=== PATIENT | male | born 1975 | race Caucasian/White ===

== ENCOUNTER → 2018-03-12 14:27 | Outpatient (CLI) | payer OTHER, SELFPAY ==
[2018-03-12 14:42] LABS: Add Manual Diff / Slide Review NO; Basophils Percent Auto 0.7 % (0-2); Eosinophils Percent Auto 1.6 % (2-4); Hematocrit 46.2 % (41-53); Hemoglobin 16.2 g/dL (13.5-17.5); Mean Corpuscular Volume 88.5 fL (80-100); Monocytes Percent Auto 8.3 % (3-14); Neutrophils Absolute Auto 5800 /uL (3000-5900); Neutrophils Percent Auto 67.4 % (50-75); Platelet Count 205 X10^3/uL (150-400); Red Blood Cell Count 5.22 X10^6/uL (4.5-5.9); Red Cell Distribution Width 13.8 % (11.6-14.8); White Blood Cell Count 8.6 X10^3/uL (4.5-11.0)
[2018-03-12 14:54] LABS: Alanine Aminotransferase 40 IU/L (21-72); Albumin 4.6 g/dL (3.5-5.0); Albumin Globulin Ratio 1.4 (1.0-2.8); Alkaline Phosphatase 64 U/L (38-126); Aspartate Aminotransferase 25 IU/L (17-59); BUN Creatinine Ratio 13.8 (6-22); Bilirubin Total 0.8 mg/dL (0.2-1.3); Blood Urea Nitrogen 11 mg/dL (9-20); Calcium 9.3 mg/dL (8.4-10.2); Carbon Dioxide 28 mmol/L (22-32); Chloride 101 mmol/L (98-107); Estimated Glomerular Filt Rate > 60.0 mL/min (>60); Globulin 3.3 g/dL (1.7-4.1); Glucose 101 mg/dL (70-100); HEMOLYSIS < 15 (0-50); Lactate Dehydrogenase 384 U/L (313-618); Sodium 142 mmol/L (137-145); Total Protein 7.9 g/dL (6.3-8.2)
== END ==
PROVIDERS: Visit Provider Nurse Practitioner Gerontology
DX: C82.90 Follicular lymphoma, unspecified, unspecified site (principal)
CPT/HCPCS: 36415; 80053; 83615; 85025

== ENCOUNTER → 2018-07-09 14:46 | Outpatient (CLI) | payer OTHER, SELFPAY ==
--- NOTE | 2018-07-09 14:47 | DI.CT.S_ITS ---
PROCEDURE: CT CHEST ABD PEL W CON INDICATIONS: History of follicular lymphoma. TECHNIQUE: After the administration of oral and intravenous contrast, 5 mm thick sections acquired from the lung apices to the symphysis. 5 mm coronal and sagittal reformats were performed, with additional 7 mm coronal MIP reformats through the lungs. For radiation dose reduction, the following was used: automated exposure control, adjustment of mA and/or kV according to patient size. COMPARISON: [facility], CT, CHEST ABDOMEN PELVIS WITH CONTRAST, 09/04/2011, 9:28. [facility], CT, NECK/CHEST/ABD/PEL W CONTRAST, 06/09/2015, 10:07. [facility], CT, CHEST/ABD/PEL WITH CONTRAST, 07/21/2012, 9:04. FINDINGS: Image quality: Excellent. CHEST: Lungs and pleura: No new suspicious nodules or masses the lesions. There are a few small nodules including a 2 mm nodule in the right upper lobe on series 3 image 19 and small foci of nodular thickening along the right major fissure on images 34 and 35 which appear unchanged compared to the prior studies. There is mild dependent atelectasis. There are calcified nodules consistent with old granulomas disease. No pleural effusions or pneumothorax. Central and peripheral airways appear patent and normal in caliber. Mediastinum: Heart size is normal. No pericardial effusion. No mediastinal or hilar adenopathy by size criteria. Thoracic aorta and central pulmonary arteries are normal in size. Esophagus is normal in caliber. No hiatal hernia. Chest wall: No axillary or supraclavicular adenopathy by size criteria. Thyroid gland demonstrates no discrete nodules. ABDOMEN: Solid organs: No focal hepatic mass lesions identified. Gallbladder is nondistended without calcified gallstones. Biliary system is non dilated. Pancreas enhances normally. Spleen is normal in size with scattered splenic calcifications consistent with old granulomas disease. No adrenal nodules. Kidneys demonstrate normal size and enhancement, without hydronephrosis. Peritoneum and bowel: Bowel loops demonstrate normal wall thickness and caliber. No free fluid or air. Nodes and vessels: No retroperitoneal or mesenteric adenopathy by size criteria. Aorta and inferior vena cava are normal in size. Miscellaneous: No ventral hernias. PELVIS: Genitourinary: Bladder wall thickness is normal. Miscellaneous: No inguinal hernias or adenopathy. Bones: No suspicious bony lesions. There are pars defects redemonstrated at L5-S1. No vertebral body compression fractures. IMPRESSION: 1. No lymphadenopathy or other evidence of recurrent disease in the chest, abdomen, or pelvis. Dictated by: Maurisio Coy M.D. on 07/09/2018 at 16:31 Approved by: Maurisio Coy M.D. on 07/09/2018 at 16:37
== END ==
PROVIDERS: Visit Provider Internal Medicine Hematology & Oncology
DX: C82.90 Follicular lymphoma, unspecified, unspecified site (principal)
CPT/HCPCS: 71260; 74177; Q9967

== ENCOUNTER 2018-07-10 09:00 | Oncology outpatient (ONC) | payer OTHER, SELFPAY ==
[2018-06-30 11:02] VITALS: BP 129/83; PULSE 78; RESP 17; TEMP 36.9; O2SAT 98
--- NOTE | 2018-06-30 12:21 | ONC.PN ---
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 Patient completed the treatment on April 09, 2012. There after patient has been on active surveillance. Last time patient was seen in February of 2017. Since then patient has not seen any physicians yet. Patient presents here today for scheduled follow-up. Patient reported that he has noticed a little more night sweats than before. 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 Patient denies any weight fever or chills. Patient said that he has good appetite and the weight has been stable. Recently patient also noted it has noticed some ?cysts? in the upper inner thighs bilaterally. No enlarged lymph nodes in the groin or the axilla us. Patient reported that the right-sided scar at in the groin still there and has not changed. The right lower extremity edema remains about the same. ONCOLOGICAL HISTORY Stage IV follicular lymphoma, originally diagnosed in 2008 after presenting with bulky adenopathy in the inguinal area on the right, biopsy confirmed. He was treated with Rituxan/CHOP completed 6 cycles on 11/07/2009 followed by maintenance Rituxan for 18 months, completed 04/09/2012. The last CT scan for surveillance was 09/04/2011. Chronic right leg edema following previous right inguinal lymph node biopsy. Last seen by Rashi Byrd on 02/13/2017. - Patient Self-Reported Symptoms SR Constitution: Fatigue/Malaise, Night Sweats SR eye issues: Double vision SR ears, nose, mouth, throat issues: Changes in taste SR respiratory issues: Shortness of breath SR Cardiovascular issues: Dizzy/lightheaded SR Skin issues: Blistering or peeling SR Musculoskeletal issues: Back or neck pain SR Neuro issues: Lightheaded/dizzy - Additional ROS All systems PM: reviewed and no additional remarkable complaints except as stated Home Medications and Allergies Home Medications Medication Instructions Recorded Confirmed Type multivitamin [Multiple Vitamins] 1 tab PO QDAY #0 02/13/17 06/30/18 History Allergies Allergy/AdvReac Type Severity Reaction Status Date / Time Penicillins [PENICILLINS] Allergy Unknown Verified 06/30/18 11:08 Exam Vital signs: Last Vital Signs Temp 98.4 F 06/30/18 11:02 Pulse 78 06/30/18 11:02 Resp 17 06/30/18 11:02 BP 129/83 06/30/18 11:02 Pulse Ox 98 06/30/18 11:02 ECOG 1 - Constitutional positive no acute distress, positive obese, positive cooperative - Routine HEENT Exam Head: Present: normocephalic, atraumatic Eye: Present: EOMI, PERRL, normal accommodation. Absent: conjunctival icterus - Routine Neck Exam Present: supple, trachea midline. Absent: lymphadenopathy, thyromegaly - Routine Respiratory Exam Present: Clear to auscultation bilaterally. Absent: wheezes - Routine Cardiovascular Exam Present: RRR, S1, S2. Absent: murmur, gallop, rubs - Routine Abdominal Exam Present: soft, normoactive bowel sounds. Absent: tenderness, distended Palpation/Percussion: Absent: hepatomegaly, splenomegaly - Routine Extremities Exam Present: edema Comments: Mild right lower extremity edema. Left side is completely normal. - Routine Neurological Exam Present: alert, oriented X3, CN II-XII intact. Absent: sensory deficit, motor deficit - Routine Psychiatric Exam Present: normal affect, normal thought process, cooperative, good insight, good judgment - Additional findings Additional findings: Id not appreciate any enlarged lymph nodes in the neck, axilla, or groins on the left side. On the right side there are 2 palpable hard nodes of 1 cm in size, which probably are the scars patient was talking about. Patient said the have not changed at all. Results - Labs All labs in the computer were reviewed. Assessment and Plan (1) Follicular lymphoma Current visit: Yes Status: Chronic I reviewed the lab results with the patient. Patient's CBC from March 12 is completely within the normal range. On my physical examination, I do not appreciate any enlarged lymph nodes. The minor symptom of mild night sweats probably is not indicative of disease recurrence or metastasis. However the patient has not had a repeat staging since after about 2010. Given all the above and the fact that his follicular lymphoma was stage IV and treated with 8 cycles of R-CHOP followed by maintenance therapy with rituximab, I will proceed with a restaging studies with CT scan of the chest abdomen and pelvis. And I will have him come back after the scan results are available for review, hopefully about 1 week.
[2018-07-10 09:28] VITALS: BP 142/88; PULSE 92; RESP 16; TEMP 36.7; O2SAT 97
--- NOTE | 2018-07-10 09:52 | ONC.PN ---
PN -Subjective Interval history: CHIEF COMPLAINT: Stage IV follicular lymphoma here for scheduled for follow-up INTERIM EVENTS After his previous visit, patient underwent CT scan of the chest abdomen and pelvis on July 09, 2018. The CT scan showed no enlarged lymphadenopathy and no evidence of disease recurrence or metastasis. Patient came here today for review of the CT scan results. Patient said that maybe he has just been too much worried about his underlying history of follicular lymphoma. He reports no new signs or symptoms. ONCOLOGICAL HISTORY Stage IV follicular lymphoma, originally diagnosed in 2008 after presenting with bulky adenopathy in the inguinal area on the right, biopsy confirmed. He was treated with Rituxan-CHOP and completed 6 cycles on 11/07/2009 followed by maintenance Rituxan for 18 months, completed 04/09/2012. He endorses chronic right leg edema following previous right inguinal lymph node biopsy - Patient Self-Reported Symptoms SR Constitution: Fatigue/Malaise, Night Sweats - Additional ROS All systems PM: reviewed and no additional remarkable complaints except as stated Home Medications and Allergies Home Medications Medication Instructions Recorded Confirmed Type multivitamin [Multiple Vitamins] 1 tab PO QDAY #0 02/13/17 06/30/18 History Allergies Allergy/AdvReac Type Severity Reaction Status Date / Time Penicillins [PENICILLINS] Allergy Unknown Verified 06/30/18 11:08 Exam Vital signs: Last Vital Signs Temp 98.0 F 07/10/18 09:28 Pulse 92 H 07/10/18 09:28 Resp 16 07/10/18 09:28 BP 142/88 H 07/10/18 09:28 Pulse Ox 97 07/10/18 09:28 ECOG 1 Narrative: General: Patient came in by himself. NAD, WDWN, pleasant and very cooperative. HEENT: Normocephalic atraumatic, extraocular muscle movement intact. Pupils are round equal and reactive to light and accommodations. Anicteric sclera. Neck: Supple, no palpable thyromegaly and no palpable lymph nodes. Respiratory: Clear to auscultation soft, no wheezes. Cardiovascular regular rate and rhythm, S1-S2 normal, no murmurs gallops or rubs. Abdomen: Soft nontender, bowel sounds normal, no palpable organomegaly. Lower extremities: No palpable pedal edema. Neurological exam: Patient is awake and alert and oriented x3, nonfocal on my examination. Psychiatry: normal thought process, good affect, appropriate mood, good judgment. Results - Labs CT scan results as documented in history of present illness Assessment and Plan (1) Follicular lymphoma I reviewed the CT scan results with the patient. I pointed out that based on the CT scan, there is no evidence of disease recurrence or metastasis. And I talked with him that I would like to continue the current active surveillance. I will see the patient every 6 months. I will bring him back and we will check CBC, CMP, LDH and beta 2 microglobulin.. (2) Leg edema, right chronic in nature, occurred after right inguinal lymph node biopsy, stable, will need monitor.
== END 2018-07-10 13:42 | disposition home or self-care (01) ==
PROVIDERS: Visit Provider Internal Medicine Hematology & Oncology
DX: C82.90 Follicular lymphoma, unspecified, unspecified site (principal)
CPT/HCPCS: 99213; 99214

== ENCOUNTER → 2019-03-19 12:40 | Outpatient (CLI) | payer OTHER, SELFPAY ==
[2019-03-19 13:07] LABS: Add Manual Diff / Slide Review NO; Basophils Absolute Auto 0 /uL (0-100); Basophils Percent Auto 0.5 % (0-2); Eosinophils Absolute Auto 300 /uL (0-450); Hematocrit 44.2 % (41-53); Hemoglobin 15.3 g/dL (13.5-17.5); Lymphocytes Absolute Auto 2400 /uL (1100-4500); Mean Corpuscular HGB Conc 34.6 % (30-36); Mean Corpuscular Hemoglobin 30.6 PG (26-34); Mean Corpuscular Volume 88.2 fL (80-100); Monocytes Absolute Auto 700 /uL (0-900); Monocytes Percent Auto 7.2 % (3-14); Neutrophils Absolute Auto 6600 /uL (1500-7000); Neutrophils Percent Auto 65.3 % (50-75); Platelet Count 235 X10^3/uL (150-400); Red Cell Distribution Width 13.2 % (11.6-14.8); White Blood Cell Count 10.1 X10^3/uL (4.5-11.0)
[2019-03-19 13:23] LABS: Alanine Aminotransferase 38 IU/L (21-72); Albumin 4.5 g/dL (3.5-5.0); Albumin Globulin Ratio 1.5 (1.0-2.8); Alkaline Phosphatase 62 U/L (38-126); Aspartate Aminotransferase 26 IU/L (17-59); BUN Creatinine Ratio 13.8 (6-22); Bilirubin Total 0.4 mg/dL (0.2-1.3); Blood Urea Nitrogen 11 mg/dL (9-20); Calcium 9.5 mg/dL (8.4-10.2); Carbon Dioxide 29 mmol/L (22-32); Chloride 102 mmol/L (98-107); Estimated Glomerular Filt Rate > 60.0 mL/min (>60); Glucose 51 mg/dL (70-100); HEMOLYSIS 19 (0-50); Lactate Dehydrogenase 447 U/L (313-618); Potassium 4.5 mmol/L (3.4-5.1); Sodium 140 mmol/L (137-145); Total Protein 7.5 g/dL (6.3-8.2)
[2019-03-21 12:11] LABS: Beta-2-Microglobulin 1.81 mg/L (< 2.52)
== END ==
PROVIDERS: Visit Provider Internal Medicine Hematology & Oncology
DX: C82.90 Follicular lymphoma, unspecified, unspecified site (principal); R60.0 Localized edema
CPT/HCPCS: 36415; 80053; 82232; 83615; 85025

== ENCOUNTER → 2019-10-01 12:12 | Outpatient (CLI) | payer OTHER, SELFPAY ==
[2019-10-01 12:27] LABS: Add Manual Diff / Slide Review NO; Basophils Absolute Auto 100 /uL (0-100); Basophils Percent Auto 0.4 % (0-2); Eosinophils Absolute Auto 200 /uL (0-450); Eosinophils Percent Auto 1.3 % (2-4); Hemoglobin 16.2 g/dL (13.5-17.5); Lymphocytes Absolute Auto 1500 /uL (1100-4500); Mean Corpuscular HGB Conc 33.7 % (30-36); Monocytes Absolute Auto 900 /uL (0-900); Monocytes Percent Auto 6.4 % (3-14); Neutrophils Absolute Auto 11200 /uL (1500-7000); Neutrophils Percent Auto 80.9 % (50-75); Platelet Count 205 X10^3/uL (150-400); Red Blood Cell Count 5.39 X10^6/uL (4.5-5.9); Red Cell Distribution Width 14.2 % (11.6-14.8); White Blood Cell Count 13.8 X10^3/uL (4.5-11.0)
[2019-10-01 12:59] LABS: Alanine Aminotransferase 41 IU/L (<50); Albumin 4.7 g/dL (3.5-5.0); Albumin Globulin Ratio 1.6 (1.0-2.8); Alkaline Phosphatase 64 U/L (38-126); Aspartate Aminotransferase 31 IU/L (17-59); BUN Creatinine Ratio 12.2 (6-22); Bilirubin Total 0.8 mg/dL (0.2-1.3); Blood Urea Nitrogen 11 mg/dL (9-20); Calcium 9.7 mg/dL (8.4-10.2); Carbon Dioxide 28 mmol/L (22-32); Chloride 102 mmol/L (98-107); Estimated Glomerular Filt Rate > 60.0 mL/min (>60); Globulin 2.9 g/dL (1.7-4.1); Glucose 132 mg/dL (70-100); HEMOLYSIS < 15 (0-50); Lactate Dehydrogenase 439 U/L (313-618); Potassium 5.2 mmol/L (3.4-5.1); Sodium 140 mmol/L (137-145); Total Protein 7.6 g/dL (6.3-8.2)
[2019-10-05 13:25] LABS: Beta-2-Microglobulin 1.91 mg/L (< 2.52)
== END ==
PROVIDERS: Visit Provider Internal Medicine Hematology & Oncology
DX: C82.90 Follicular lymphoma, unspecified, unspecified site (principal)
CPT/HCPCS: 36415; 80053; 82232; 83615; 85025

== ENCOUNTER → 2019-10-29 13:38 | Outpatient (CLI) | payer OTHER, SELFPAY ==
--- NOTE | 2019-10-29 13:41 | DI.US.S_ITS ---
PROCEDURE: US EXTREMITY NONVASC LOWER RT INDICATIONS: SUBCUTANOUS PALP LUMP INNER ASPECT OF RT THIGH TECHNIQUE: Real-time scanning was performed of the right thigh, with image documentation. COMPARISON: None. FINDINGS: Targeted sonographic imaging of the patient's area of concern on the medial aspect of the right thigh was performed. There is a spiculated hypoechoic lesion identified that demonstrates diffusely increased vascularity. No drainable or loculated fluid collection is identified. This area measures approximately 2.9 x 1.1 x 3.1 cm. IMPRESSION: Hypervascular hypoechoic lesion within the medial right thigh may represent a subacute hematoma. However, soft tissue sarcoma cannot be completely excluded and a contrast-enhanced MRI is recommended for further evaluation. Dictated by: Tiburcio Garcia M.D. on 10/29/2019 at 15:29 Approved by: Tiburcio Garcia M.D. on 10/29/2019 at 15:31
== END ==
PROVIDERS: Visit Provider Internal Medicine Hematology & Oncology
DX: C82.90 Follicular lymphoma, unspecified, unspecified site (principal); R22.41 Localized swelling, mass and lump, right lower limb
CPT/HCPCS: 76882

== ENCOUNTER → 2019-11-18 13:57 | Outpatient (CLI) | payer OTHER, SELFPAY ==
--- NOTE | 2019-11-18 13:59 | DI.MRI.S_ITS ---
PROCEDURE: MR FEMUR RT WO/W CON INDICATIONS: mass upper thigh of right leg TECHNIQUE: Noncontrast coronal T1 spin echo and STIR, sagittal T1 spin echo with fat saturation and STIR, axial T1 spin echo and T2 fast spin echo with fat saturation. After the administration of contrast, axial/sagittal/coronal T1 spin echo with fat saturation through the lower pelvis and thigh regions optimized for medial right upper thigh visualization. MR surface marker was placed over the palpable area of current clinical concern. COMPARISON: [facility], , EXTREMITY NONVASC LOWER RT, 10/29/2019, 14:54. FINDINGS: Image quality: Excellent. Bones: The visualized bone marrow demonstrates normal signal on all sequences. The overlying cortex appears intact. No abnormal intraosseous enhancement. Soft tissues: No previously evaluated soft tissue mass seen at the medial aspect of the upper right thigh was delineated by MR surface marker applied to the overlying skin surface, and the study was performed both without and after intravenous contrast infusion. The scanned muscles demonstrate normal overall bulk and internal signal. Subcutaneous tissues, however, appear abnormal at the site of current clinical concern. The mass lesion is mildly spiculated, extends to the skin surface, and also extends almost to the medial superficial muscular fascial layer. It has contrast-enhanced borders up to 3.6 cm in AP dimension, 1.5 cm transverse and 3.3 cm craniocaudad. This structure has no identifiable blood products within, appears solid, and homogeneously enhancing. No abnormal soft tissue enhancement is seen elsewhere, no adjacent adenopathy is found.. IMPRESSION: The enhancing mass lesion present shows no evidence of internal contrast enhancement or heterogeneity to its enhancement pattern. Its spiculation and enhancement appearance raises a high degree of concerned that this represents a malignant process, potentially sarcoma. No distant or regional metastatic disease is seen. No adenopathy is found. Surgical consultation is recommended. Dictated by: Valentin Bloom M.D. on 11/18/2019 at 16:24 Approved by: Valentin Bloom M.D. on 11/18/2019 at 16:31
== END ==
PROVIDERS: Referring Provider Internal Medicine Hematology & Oncology; Visit Provider Internal Medicine Hematology & Oncology
DX: R22.41 Localized swelling, mass and lump, right lower limb (principal); Z85.72 Personal history of non-Hodgkin lymphomas
CPT/HCPCS: 73720

== ENCOUNTER 2020-01-11 07:57 | Outpatient (CLI) | payer OTHER, SELFPAY ==
--- NOTE | 2020-01-11 07:59 | DI.US.S_ITS ---
PROCEDURE: US BIOPSY SOFT TISS PEL HIP RT Ultrasound-guided soft tissue mass biopsy with local anesthesia only. INDICATIONS: 2 separate soft tissue lesions involving the medial and anteromedial upper right thigh. TECHNIQUE: The indications, alternatives, benefits, risks, and complications of the procedure were explained to the patient. Written informed consent was obtained and placed in the chart. Continuous EKG and hemodynamic monitoring was started by trained personnel. Real-time sonography was utilized to choose the site for percutaneous soft tissue biopsy. The skin was prepped and draped in the usual sterile fashion. 1% lidocaine was infiltrated down to the site of interest. A coaxial needle was then advanced into the site of interest under direct sonographic visualization. A biopsy apparatus was then utilized, and core biopsies were obtained. The needle was then withdrawn; a bandage was applied to the biopsy site. COMPARISON: [facility], MR, MR FEMUR RT WO/W CON, 11/18/2019, 15:23. [facility], [place], [place] PET CT FUSION SKULL 2 THIGH, 12/09/2019, 15:23. FINDINGS: Biopsy site(s): 2 separate abnormalities were identified both by recent MR and PET CT scanning. The safest access for biopsy was chosen to be directed at the upper more anterior of the 2 lesions, which is located deeper beneath the dermis, within the subcutaneous fat. Needle: Betty biopsy needle set, a 20 gauge, with 19 gauge trocar. Number of passes: 5 total Medications: 1% lidocaine for local anaesthesia. Complications: None. IMPRESSION: Successful ultrasound-guided soft tissue biopsy as discussed above, with pathology results pending. Dictated by: Valentin Bloom M.D. on 01/14/2020 at 12:54 Approved by: Valentin Bloom M.D. on 01/14/2020 at 13:37
[2020-01-11 09:24] VITALS: BP 137/92; PULSE 80; RESP 18; TEMP 36.3; O2SAT 99; BMI 31.0
--- NOTE | 2020-01-11 09:49 | PATH_ITS ---
[facility] Accession Number: [id number] . 01 Material submitted: . thigh - RIGHT THIGH MASS . 01 Diagnosis: Right Thigh Mass, Ultrasound Guided Core Biopsy: Atypical B-lymphoid infiltrates, see microscopic description. [facility] 01/15/2020 1629 Local . 01 Comment: As part of ongoing quality control scientist, this case is also reviewed by Dr. Morenita Mondragon, who agrees with the findings. . . 01 Electronically signed: . Emilia Flowers MD, Pathologist NPI- [id number] . 01 Gross description: . Right Thigh Mass: Received in formalin labeled with the patient name is 24 cc of colorless, cloudy material. Cell block was submitted /[facility] 01/14/2020 1034 Local . 01 Microscopic: . Examination of the biopsy reveals dense infiltrates of predominantly small-sized lymphocytes with scant cytoplasm and irregular nucleus (centrocyte-type), with a maintained follicular architecture. The follicles appear somewhat crowded with diminished mantle zones and without debris-laden histiocytes noted. The lymphocytes infiltrate the subcutaneous fatty tissue. No sheets of large lymphocytes identified. . To further evaluate this dense lymphocytic population, immunostains were performed with the following results: . CD3: T lymphocytes positive. CD5: T lymphocytes positive. B lymphocytes negative for aberrant co-expression. CD20: B lymphocytes positive. PAX-5: B lymphocytes positive. CD10 and BCL-6: Lymphoid follicles positive. In addition, few B lymphocytes away from the follicles show variable positivity. BCL-2: No definite positivity within the follicles. Cyclin-D1: B lymphocytes negative. Ki-67: Low, 5%-10%. Otterbein and lambda light chain immunostains: Slight kappa excess on the the lymphocytes and no restriction on the plasma cells. . Aberrant BCL-6 positivity in a subset of this dense lymphocytic population raised the possibility of recurrent lymphoma (patient has a known history of follicular lymphoma); however, the absence of BCL2 staining within the follicles, precludes a definitive diagnosis for follicular lymphoma. As this is a small biopsy, the findings may not be traveling sales representative of the whole lesion; therefore, excisional biopsy of the lesion is recommended for a definitive diagnosis. . In addition, IgH receptor gene rearrangement studies (to support monoclonality versus a reactive process) and FISH studies for t(14;18) translocation, to support follicular lymphoma, will be performed for further evaluation, and these results will follow in an addendum report. . * This test was developed and its performance characteristics determined by [employer]. It has not been cleared or approved by the U.S. Food and Drug Administration. The FDA has determined that such clearance or approval is not necessary. This test is used for clinical purposes. It should not be regarded as investigational or for research. . 01 Pathologist provided ICD-10: R22.41, C82.90 . 01 CPT . 414516, J42093, C57511 Specimen Comment: A duplicate report has been generated due to demographic updates. Performed at: 01 [facility] [address] [place] [address] [address] [facility], [place], [place] [id number] MD Maurisio Rivers MD Phone: [phone]
[2020-01-11 10:05] VITALS: BP 130/74; PULSE 78; RESP 16; O2SAT 96
[2020-01-11 10:23] VITALS: BP 127/83; PULSE 79; RESP 16; O2SAT 95
--- NOTE | 2020-01-11 11:58 | SUR.PHASEII ---
1040 patient returned from radiology and was recovered and discharged by Tati from . IV discharged by Tati.
--- NOTE | 2020-01-11 12:02 | SUR.PHASEII ---
Valuables returned to patient
== END 2020-01-11 10:45 | disposition home or self-care (01) ==
LOC: OR 07:58
PROVIDERS: PCP Family Medicine; Referring Provider Family Medicine; Visit Provider Internal Medicine Hematology & Oncology
DX: R22.41 Localized swelling, mass and lump, right lower limb (principal); Z85.72 Personal history of non-Hodgkin lymphomas
CPT/HCPCS: 27040; 76942

== ENCOUNTER → 2020-02-22 09:08 | Outpatient (CLI) | payer OTHER, SELFPAY ==
[2020-02-22 13:33] LABS: COVID19 -Nasal RAPID Negative (Negative)
== END ==
PROVIDERS: PCP Family Medicine; Visit Provider Registered Nurse
DX: Z11.59 Encounter for screening for other viral diseases (principal)
CPT/HCPCS: 87635

== ENCOUNTER → 2020-03-12 13:41 | Outpatient (CLI) | payer OTHER, SELFPAY ==
[2020-03-14 02:16] LABS: COVID19 Sendout Not Detected (Not Detect)
== END ==
PROVIDERS: PCP Family Medicine; Visit Provider Physician Assistant
DX: Z11.59 Encounter for screening for other viral diseases (principal)
CPT/HCPCS: 87635

== ENCOUNTER 2020-03-15 15:23 | Day surgery (SDC) | payer OTHER, SELFPAY ==
[2020-03-15] VITALS (7 sets, daily range): BP systolic 109–133; BP diastolic 72–89; PULSE 82–105; RESP 16–20; TEMP 36.1–37.1; O2SAT 92–99; BMI 31.0
--- NOTE | 2020-03-15 | PATH_ITS ---
[facility] Accession Number: [id number] . 01 Material submitted: . groin - RIGHT GROIN PROBABLE LYMPH NODE . 01 Clinical history: . A: RIGHT GROIN PROBABLE LYMPH NODE, HISTORY OF B CELL LYMPHOMA, ABNORMAL FMA HX B CELL LYMPHOMA TREATED 2008, POSSIBLE RECURRENCE . 01 Diagnosis: Right Groin, Excision: Follicular lymphoma, extranodal (subcutaneous inguinal region), predominantly low-grade (grade 1-2/3), follicular pattern. Negative for transformation to diffuse large B-cell lymphoma. [facility] 03/21/2020 1727 Local . 01 Comment: Concurrent flow cytometry (see report [id number]) detected a CD10 positive, kappa restricted B-cell population consistent with B-cell lymphoma, follicle center origin. . This specimen represents recurrence of the patient's follicular lymphoma (treated in 2008) now with extranodal involvement (no definite lymph node architecture is identified on the entire specimen submitted for microscopic examination). . 01 Electronically signed: . Emilia Flowers MD, Pathologist NPI- [id number] . 01 Gross description: . Received in formalin, labeled right groin probable lymph node, HX B-cell lymphoma, abnormal FNA, are two unoriented pieces of matute-white smooth shiny unremarkable skin with underlying tissue which apparently go together (4.0 x 2.3 x 1.8 cm). The resection margin is inked blue and the sliced surface from sampling (probably for flow) is inked green. One piece is serially sectioned and entirely submitted in cassettes A1-A6, and the second piece is serially sectioned and entirely submitted in cassettes A7-A14. Note: Per the requisition, this is a split sample. ([id number]) /MRV 03/21/2020 1727 Local . 01 Microscopic: . . Microscopic examination of the right groin lesion reveals crowded neoplastic follicles, [id number], without mantle zones, extending into subcutaneous fatty tissue, sparing the overlying epidermis. The neoplastic follicles are composed predominantly of small to intermediate sized lymphocytes with irregular cleaved nucleus (centrocytes), inconspicuous nucleolus and scant cytoplasm. Mostly of the neoplastic follicles are composed of less than 15 centroblasts per high-power field (with only rare neoplastic follicles exceeding 15 centroblasts/HPF), therefore, overall the grade is predominantly low-grade (1-2/3) and the pattern predominantly follicular (more than 75%). . To better evaluate those lymphocytes, a panel of immunostains is performed with the following results: . CD3 (Block A2): T-lymphocytes positive. CD5 (Block A2): T-lymphocytes positive. (No aberrant coexpression on the B-lymphocytes). CD10 (Block A2): Neoplastic lymphoid follicles positive. CD20 (Blocks A2 and A5): Neoplastic lymphoid follicles positive. PAX5 (Block A2): Neoplastic lymphoid follicles positive. CD23 (Blocks A2 and A5): Follicular dendritic cells positive. BCL2 (Blocks A2 and A5): Neoplastic B-lymphocytes negative, see note. BCL6 (Blocks A2 and A5): Neoplastic lymphoid follicles positive. Cyclin D1 (Block A2): Neoplastic B-lymphocytes negative. Ki-67 (Blocks A2 and A5): Variably positive, ranging from 5 to 15%. . Note: Negative BCL2 is rarely seen in follicular lymphomas. Possibilities include extranodal involvement, post treatment (Rituxan) effect, clone of antibody, etc. On a recent specimen (surgical case #[id number], 01/14/20, small biopsy of the same lesion) BCL2 was also negative. FISH performed on that specimen was positive for BCL2-IGH fusion, t(14;18), supporting the diagnosis. . There is no evidence of transformation to Diffuse Large B-cell Lymphoma. . Selected slides were also reviewed by Dr. Morenita Delaney who agrees with the interpretation. . . * This test was developed and its performance characteristics determined by [employer]. It has not been cleared or approved by the U.S. Food and Drug Administration. The FDA has determined that such clearance or approval is not necessary. This test is used for clinical purposes. It should not be regarded as investigational or for research. . 01 Pathologist provided ICD-10: C82.19 . 01 CPT . 701353, D97137, C29267 Performed at: [facility] [address], [place], [place] [id number] MD Maurisio Rivers MD Phone: [phone]
--- NOTE | 2020-03-15 17:17 | SUR.PREOP ---
Called patient's and updated regarding surgery. Patient into OR.
[2020-03-15] MEDS: CLINDAMYCIN 900 MG/50 ML PIGGYBACK 50 MG IV (17:20)
--- NOTE | 2020-03-15 17:24 | PM.PREOP ---
Pre-operative Note COVID-19 COVID-19 status: Negative Result date/Date tested (Pos, Neg/Pending): 02/13/20 Interval Note History & Physical reviewed/Exam performed by Physician: Yes Changes to H&P: No
--- NOTE | 2020-03-15 17:48 | SUR.OPER ---
Supine on padded OR bed, head on pillow, arms secured on padded arm boards at <90 degrees abduction, legs uncrossed, safety belt at thigh, tape over blanket over lower legs.
[2020-03-15] MEDS: BUPIVACAINE 0.5% W/ EPI (PF) 10 ML VIAL 30 ML INJ (18:10)
--- NOTE | 2020-03-15 18:21 | PM.OP.1 ---
Operative Date/Time/Diagnoses Date of procedure: 03/15/20 Time of procedure: 18:21 Pre-op diagnosis: History of B-cell lymphoma with lymph node enlargement and an abnormal FNA of the node in his right groin Post-op diagnosis: same Procedure & Clinicians Procedure: Lymph node biopsy including overlying skin Same procedure as scheduled: Yes Indications: Diagnostic Surgeon: Nikhil Kwan Click Yes if Unassisted: Yes Anesthesia Type: General Operative Notes Findings: Node located beneath the skin and subcu fat but seem to thickened the skin overlying it. Closure Type: primary Specimen(s): other (Slides, flow cytometry material, formalin.) Prosthetic devices, grafts, tissues, transplants, or devices: None Estimated Blood Loss (mL): 5 Blood products transfused: none Procedure in detail: Patient is placed supine on the operating room table and underwent general LMA anesthesia. The air involve was prepped and draped in the usual fashion. He had been marked preoperatively. An EGD ellipse was made overlying the mass and the thickened skin over it. This was the node that had been biopsied by FNA. The lips was carried down through the subcu to the level of the superficial fascia to which the node appeared to be attached. I removed the node and ligated the inflow with sutures of 3 0 Vicryl. Once the node was removed the specimens were prepared. The tissue was closed with 3 0 Vicryl interrupted sutures. There was a deep layer followed by a more superficial layer followed by 4 0 Vicryl in the skin. I tried to completely obliterate the space. Mastisol and Steri-Strips were applied. Dressing was applied the patient was awakened and extubated and taken recovery room in good condition Complications: none Post-operative Condition: stable Disposition: PACU Plan for aftercare: Follow-up in the office
== END 2020-03-15 19:31 | disposition home or self-care (01) ==
PROVIDERS: PCP Family Medicine; Referring Provider Specialist; Visit Provider Specialist
PROC: (CPT 38531; principal; 2020-03-15 15:15)
DX: C82.19 Follicular lymphoma grade II, extranodal and solid organ sites (principal); F17.210 Nicotine dependence, cigarettes, uncomplicated
CPT/HCPCS: 38531; J1100; J2250; J2405; J2704; J3010